=== PATIENT | female | born 1955 | race Caucasian/White ===

== ENCOUNTER 2017-11-13 08:11 | Outpatient (CLI) | payer BC | END 2017-11-13 08:12 | disposition home or self-care (01) | LOC: BICMAMMO 08:11 | PROVIDERS: ATTEND Family Medicine | DX: Z12.31 Encounter for screening mammogram for malignant neoplasm of breast (principal) | CPT/HCPCS: 77063; 77067 ==

== ENCOUNTER 2018-02-12 08:25 | Outpatient (CLI) | payer BC | END 2018-02-12 08:26 | disposition home or self-care (01) | LOC: BICRAD 08:25 | PROVIDERS: ATTEND Family Medicine | DX: M25.551 Pain in right hip (principal); M16.11 Unilateral primary osteoarthritis, right hip ==

== ENCOUNTER 2020-07-01 07:04 | Outpatient (CLI) | payer MEDICARE, OTHER ==
--- NOTE | 2020-07-01 07:39 | ULT ---
Sonogram abdomen complete HISTORY: Upper abdomen pain. FINDINGS: The gallbladder is surgically absent. Common duct is 0.6 cm. Liver unremarkable without focal mass or intrahepatic biliary dilatation. No free fluid. The spleen, kidneys, and visualized portions of abdominal aorta, IVC, and pancreas are within normal limits. IMPRESSION : Status post cholecystectomy. No abnormalities are demonstrated.
== END 2020-07-01 07:05 | disposition home or self-care (01) ==
LOC: BICULT 07:04
PROVIDERS: ATTEND Family Medicine
DX: R10.9 Unspecified abdominal pain (principal); Z90.49 Acquired absence of other specified parts of digestive tract
CPT/HCPCS: 93975

== ENCOUNTER 2022-07-25 08:16 | Outpatient (CLI) | payer MEDICARE | END 2022-07-25 08:17 | disposition home or self-care (01) | LOC: NM 08:16 | PROVIDERS: ATTEND Psychiatry & Neurology Neurology | DX: R25.1 Tremor, unspecified (principal); R26.9 Unspecified abnormalities of gait and mobility | CPT/HCPCS: 78803; A9584 ==